=== PATIENT | male | born 1980 | race Caucasian/White ===

== ENCOUNTER 2023-02-27 08:04 | Emergency (ER) | payer BC, SELFPAY ==
[2023-02-27 08:18] VITALS: BP 133/83; PULSE 84; RESP 16; TEMP 36.6; O2SAT 97
--- NOTE | 2023-02-27 08:24 | ED.URI ---
HPI - URI/Sore Throat General Chief Complaint: Upper Respiratory Infection Stated Complaint: Sore Throat,Congestion,Bilateral Ear Irritation Source: patient and RN notes reviewed Mode of arrival: ambulatory Limitations: no limitations History of Present Illness HPI Narrative: 42 y/o male presented for c/o sore throat since yesterday. Also reports fever up to 102 at home 3 days ago with intermittent subjective fever/chills, ear pressure with swallowing, sinus congestion, hoarse voice and mild cough. Denies sob, chest pain, n/v/d, or fatigue. Taking Mucinex Dayquil and Tylenol for symptoms. MD elicited complaint: cough Related Data Home Medications Medication Instructions Recorded Confirmed allopurinol 300 mg tablet 300 mg PO DAILY 02/27/23 02/27/23 omeprazole 20 mg capsule,delayed 20 mg PO DAILY 02/27/23 02/27/23 release Allergies Allergy/AdvReac Type Severity Reaction Status Date / Time No Known Allergies Allergy Mild Verified 02/27/23 08:12 Review of Systems Review of Systems: CONSTITUTIONAL: Endorses malaise, chills, sweats, fever EYES: Denies visual changes, redness, or discharge ENT: Reports rhinorrhea, congestion, sinus pain, otalgia, sore throat CARDIOVASCULAR: Denies chest pain, palpitations, edema RESPIRATORY: Reports cough, post nasal drainage. Denies dyspnea GASTROINTESTINAL: Denies abdominal pain, nausea, vomiting, diarrhea SKIN: Denies rash or itching MUSCULOSKELETAL: Endorses myalgia NEUROLOGIC: Denies headache [facility] Past Medical History Medical History (Updated 02/27/23 @ 08:38 by Aixa Patino, LAST CODE [employer]IPER) No pertinent past medical history Exam Narrative: GENERAL: mildly Ill-appearing, nontoxic no acute distress. HEAD: Normocephalic EYES: PERRLA, conjunctivae clear ENT: Mucous membranes moist. TMs pearly jeffery with dull light reflex bilaterally; no tragal tenderness. Hoarse voice. Oropharynx erythematous without lesions or exudate, no tonsillar enlargement; no drooling, no trismus, uvula midline. No tripod positioning, muffled voice, soft palate or pharyngeal wall bulging NECK: Supple. No lymphadenopathy CHEST: Clear to auscultation, breath sounds equal. No wheezing, rhonchi, rales, or stridor. No respiratory distress, speaks in full sentences. HEART: Regular rate and rhythm. No murmur heard. SKIN: Warm, dry, no rash. NEURO: Alert and oriented x3. PSYCH: Normal mood and affect Course Course Emergency Course: Patient is aware of diagnosis, understands and agrees to treatment plan. Anticipatory guidance given. Patient agrees to follow-up as directed and is aware of reasons to seek care at the emergency department. Portions of this record may have been created with voice recognition software Level of Care: Express Care Visit Vital Signs Vital signs: Vital Signs Temperature 97.9 F 02/27/23 08:18 Pulse Rate 84 02/27/23 08:18 Respiratory Rate 16 02/27/23 08:18 Blood Pressure 133/83 02/27/23 08:18 Pulse Oximetry 97 02/27/23 08:18 Oxygen Delivery Room Air 02/27/23 08:18 Temperature 97.9 F 02/27/23 08:18 Pulse Rate 84 02/27/23 08:18 Respiratory Rate 16 02/27/23 08:18 Blood Pressure 133/83 02/27/23 08:18 Pulse Oximetry 97 02/27/23 08:18 Oxygen Delivery Room Air 02/27/23 08:18 reviewed MDM - URI/Sore Throat MDM Narrative Medical decision making narrative: POS covid. Results reviewed with patient. Discussed physical exam findings. Advised supportive measures and signs/symptoms to go to the ER. Pt is appropriate for outpt treatment and f/u. Differential Diagnosis Differential diagnosis: Likely upper respiratory infection, sinusitis and viral infection Discharge Plan Discharge Clinical Impression: COVID-19 Patient Disposition: Home, Self-Care Condition: Stable Instructions: COVID-19 (Coronavirus Disease 2019) (ED) Additional Instructions: Your rapid COVID test was positive today. The following recommendations have
== END 2023-02-27 08:36 | disposition home or self-care (01) ==
PROVIDERS: Emergency Provider Nurse Practitioner Family
DX: U07.1 COVID-19 (principal)
CPT/HCPCS: 87081; 87426; 87804; 87880; 99213; C9803; G0463